=== PATIENT | male | born 2000 | race Caucasian/White ===

== ENCOUNTER 2022-11-12 21:07 | Observation (INO) ==
[2022-11-12 21:57] LABS: Basophils # (auto) 0.08 K/uL (0-0.2); Basophils % (auto) 0.9 %; Eosinophils # (auto) 1.28 K/uL (0-0.50); Eosinophils % (auto) 14.5 %; Hemoglobin 15.3 g/dl (14.0-18.0); Immature Granulocytes # (auto) 0.02 K/uL (0.01-0.20); Immature Granulocytes % (auto) 0.2 %; Lymphocytes # (auto) 3.32 K/uL (1.2-3.4); Lymphocytes % (auto) 37.6 %; Mean Corpuscular Hemoglobin 30.4 pg (25.0-34.0); Mean Corpuscular Hgb Conc 35.6 g/dL (32.0-36.0); Mean Corpuscular Volume 85.3 fL (80.0-100.0); Mean Platelet Volume 10.7 fL (9.4-12.4); Monocytes # (auto) 0.63 K/uL (0.11-0.59); Monocytes % (auto) 7.1 %; Neutrophils # (auto) 3.51 K/uL (1.40-6.50); Neutrophils % (auto) 39.7 %; Platelet Count 193 K/uL (130-400); RDW Coefficient of Variation 11.9 % (11.5-14.5); RDW Standard Deviation 36.6 fL (36.4-46.3); Red Blood Count 5.04 M/uL (4.70-6.10); White Blood Count 8.84 K/ul (4.8-10.8)
[2022-11-12 22:16] LABS: Albumin Globulin Ratio 1.7 (0.9-2); Albumin Level 4.4 gm/dl (3.4-5.0); BUN Creatinine Ratio 16.7 (10-20); Bilirubin,Total 0.6 mg/dl (0.2-1.0); Calcium 9.1 mg/dl (8.5-10.1); Creatinine Clr Calc Pharmacy 186.5 ml/min; Est GFR (African American) 145.1 ml/min; Est GFR (Non-African American) 125.2 ml/min; Globulin 2.6 gm/dl (2.5-4.0)
[2022-11-12] MEDS ORDERED: OPTIRAY 350 100ml IV ONE (22:27)
[2022-11-12] MEDS ORDERED: SODIUM CHLORIDE 0.9% 1000ML 1,000 ML IV SCH (23:30)
[2022-11-12] MEDS ORDERED: MoRPHine SULFATE 4 MG/ML 1 ML CARP\\VIAL IV PRN (23:30)
[2022-11-12] MEDS ORDERED: cefOXitin 2,000 MG/60 ML BAG IV STA (23:30)
[2022-11-12] MEDS ORDERED: ONDANSETRON INJ 2 MG/ML 2 ML VIAL IV STA (23:30)
--- NOTE | 2022-11-12 23:45 | Emergency Department Note ---
History of Present Illness General Chief complaint: Abdominal Pain Stated complaint: ABDOMINAL PAIN FOR 6 DAYS, Time Seen by Provider: 11/12/22 22:54 History of Present Illness Maximum Pain Intensity: 8 This is a 22-year-old male presenting to the emergency department for evaluation of abdominal pain for the past 5 or 6 days. Patient states his symptoms are slightly to the right side of center. He initially thought he may have been constipated as his symptoms seem to gotten worse after eating this week. The patient did not change his diet or have any recent travel history. He is usually heathy with no previous surgery. The patient does not have significant nausea or vomiting. He has not had much to eat today, but did eat something around 7:30 PM. No fevers. He rates his discomfort an 8/10, dull, and increasing in severity. Home Medications Medication Instructions Recorded Confirmed Type oxycodone-acetaminophen 5 mg-325 1 tab PO Q6H PRN pain #10 tabs 11/13/22 Rx mg tablet (Percocet) Allergies Allergy/AdvReac Type Severity Reaction Status Date / Time No Known Allergies Allergy Verified 11/12/22 23:42 Past Med/Surg History Medical History No pertinent past medical history Surgical History No pertinent past surgical history Social History Smoking Status: Never smoker Hx Alcohol Use: Yes Alcohol type: beer and wine Hx Substance Use: No Preferred Language: Tajik Communication Ability: Effective Master [place] Required: No Beliefs That Will Affect Care: None Current Living Situation: Alone Other Information That Helps Us Care for You: No Feels Safe at Home: Yes Safety Concerns: Feels Safe At This Time Review of Systems A total of 10 systems reviewed and were otherwise negative Physical Exam Vital Signs Vital Signs - 24 hr 11/12/22 21:28 11/12/22 23:45 11/13/22 01:08 Temperature 36.7 C Temperature Source Temporal Artery Scan Pulse Rate 82 Pulse Rate [Finger] 72 Pulse Rate from SpO2 Sensor 70 Pulse Rhythm [Finger] Pulse Strength [Finger] Respiratory Rate 18 16 20 Respiratory Effort / Characteristics Non-Labored Spontaneous Accessory Muscle Use Respiratory Depth Normal Respiratory Pattern Blood Pressure 140/91 Blood Pressure [Right Arm] 108/59 L Blood Pressure Mean 107 Blood Pressure Mean [Right Arm] 75 Blood Pressure Position [Right Arm] Pulse Oximetry 98 99 99 Oxygen Delivery Method Room Air Room Air Sepsis Recent Fever Within 48 Hours No Sepsis New/Unexplained Change in Mental Status No Sepsis Action Taken by Nursing No Action Required 11/13/22 01:10 11/13/22 01:30 11/13/22 02:00 Temperature Temperature Source Pulse Rate Pulse Rate [Finger] Pulse Rate from SpO2 Sensor 69 81 79 Pulse Rhythm [Finger] Pulse Strength [Finger] Respiratory Rate 22 20 14 Respiratory Effort / Characteristics Respiratory Depth Respiratory Pattern Blood Pressure 94/71 L 113/72 123/72 Blood Pressure [Right Arm] Blood Pressure Mean 78 85 89 Blood Pressure Mean [Right Arm] Blood Pressure Position [Right Arm] Pulse Oximetry 99 98 97 Oxygen Delivery Method Sepsis Recent Fever Within 48 Hours Sepsis New/Unexplained Change in Mental Status Sepsis Action Taken by Nursing 11/13/22 01:00 11/13/22 03:00 11/13/22 02:33 Temperature Temperature Source Pulse Rate Pulse Rate [Finger] Pulse Rate from SpO2 Sensor 82 Pulse Rhythm [Finger] Pulse Strength [Finger] Respiratory Rate Respiratory Effort / Characteristics Non-Labored Non-Labored Respiratory Depth Normal Respiratory Pattern Regular Regular Blood Pressure Blood Pressure [Right Arm] Blood Pressure Mean Blood Pressure Mean [Right Arm] Blood Pressure Position [Right Arm] Pulse Oximetry 97 Oxygen Delivery Method Room Air Sepsis Recent Fever Within 48 Hours Sepsis New/Unexplained Change in Mental Status Sepsis Action Taken by Nursing 11/13/22 03:00 11/13/22 03:30 11/13/22 04:00 Temperature Temperature Source Pulse Rate 59 L 56 L 53 L Pulse Rate [Finger] Pulse Rate from SpO2 Sensor 59 L 56 L 53 L Pulse Rhythm [Finger] Pulse Strength [Finger] Respiratory Rate 18 13 12 Respiratory Effort / Characteristics Respiratory Depth Respiratory Pattern Blood Pressure 117/70 115/67 110/63 Blood Pressure [Right Arm] Blood Pressure Mean 85 83 78 Blood Pressure Mean [Right Arm] Blood Pressure Position [Right Arm] Pulse Oximetry 97 96 96 Oxygen Delivery Method Sepsis Recent Fever Within 48 Hours Sepsis New/Unexplained Change in Mental Status Sepsis Action Taken by Nursing 11/13/22 04:30 11/13/22 04:30 11/13/22 05:00 Temperature Temperature Source Pulse Rate 82 56 L Pulse Rate [Finger] Pulse Rate from SpO2 Sensor 55 L Pulse Rhythm [Finger] Pulse Strength [Finger] Respiratory Rate 17 15 Respiratory Effort / Characteristics Respiratory Depth Respiratory Pattern Blood Pressure 107/62 103/58 L Blood Pressure [Right Arm] Blood Pressure Mean 77 73 Blood Pressure Mean [Right Arm] Blood Pressure Position [Right Arm] Pulse Oximetry 96 Oxygen Delivery Method Sepsis Recent Fever Within 48 Hours Sepsis New/Unexplained Change in Mental Status Sepsis Action Taken by Nursing 11/13/22 05:31 Temperature 36.5 C Temperature Source Oral Pulse Rate Pulse Rate [Finger] 69 Pulse Rate from SpO2 Sensor Pulse Rhythm [Finger] Regular Pulse Strength [Finger] Normal Respiratory Rate 18 Respiratory Effort / Characteristics Non-Labored Respiratory Depth Normal Respiratory Pattern Regular Blood Pressure Blood Pressure [Right Arm] 114/71 Blood Pressure Mean Blood Pressure Mean [Right Arm] 85 Blood Pressure Position [Right Arm] Sitting Pulse Oximetry 100 Oxygen Delivery Method Room Air Sepsis Recent Fever Within 48 Hours Sepsis New/Unexplained Change in Mental Status Sepsis Action Taken by Nursing VITALS: Vitals are noted on the nurse's note and reviewed by myself. Vital signs stable. GENERAL: Well-developed, well-nourished, white male, who is in no acute distress and resting comfortably. Patient is cooperative with the examination. HEAD: Normocephalic atraumatic. NECK: Supple without nuchal rigidity. No lymphadenopathy. No thyromegaly. Cervical spine is nontender. HEART: Regular rate and rhythm without murmurs gallops or rubs. LUNGS: Clear to auscultation bilaterally without wheezes, rales or rhonchi. No retractions or accessory muscle use. ABDOMEN: Positive normal bowel sounds x 4. Soft with mild tenderness to the right side of the umbilicus. No rebound or guarding. MUSCULOSKELETAL: No muscle atrophy, erythema, or edema noted. Full range of motion in all extremities. NEURO: Patient was alert and oriented to person place and time. CN II through XII grossly intact. Course Administered Medications Lactated Ringer's (Lr) 1,000 mls @ 50 mls/hr IV .Q20H JANET Stop: 12/13/22 08:12 Last Infusion: 11/13/22 16:29 Dose: 50 mls/hr Documented By: Admin: 11/13/22 09:25 Dose: 80 mls/hr Documented By: VERENICE Ibuprofen (Ibuprofen 600 Mg Tab) 600 mg PO Q6H PRN PRN Reason: Mild Pain Stop: 12/13/22 15:46 Last Admin: 11/13/22 21:09 Dose: 600 mg Documented By: SKYLAR Oxycodone/Acetaminophen (Oxycodone/Acetaminophen 5mg/325mg Tab) 1 tab PO Q4H PRN PRN Reason: Pain Stop: 11/27/22 08:12 Last Admin: 11/13/22 15:47 Dose: 1 tab Documented By: Admin: 11/13/22 09:26 Dose: 1 tab Documented By: VERENICE Discontinued Medications Bacitracin (Bacitracin Oint 15 Gm Tube) Confirm Administered Dose 45 appln .ROUTE .STK-MED ONE Stop: 11/13/22 05:38 Last Admin: 11/13/22 06:25 Dose: Not Given Documented By: DEEPAK Bupivacaine HCl (Bupivacaine 0.5 % 5 Mg/1 Ml Mpf 30ml Vial) Confirm Administered Dose 30 ml .ROUTE .STK-MED ONE Stop: 11/13/22 05:38 Last Admin: 11/13/22 06:39 Dose: 14 ml Documented By: RANGEL Sodium Chloride (Nss 1000ml) 1,000 mls @ 999 mls/hr IV .Q1H1M JANET Stop: 11/13/22 00:30 Last Infusion: 11/13/22 01:03 Dose: 0 mls/hr Documented By: Admin: 11/12/22 23:59 Dose: 999 mls/hr Documented By: ZOYA Cefoxitin Sodium (Mefoxin) 2,000 mg in 60 mls @ 100 mls/hr IV NOW STA Stop: 11/13/22 00:05 Last Infusion: 11/13/22 01:03 Dose: 0 mls/hr Documented By: Admin: 11/12/22 23:55 Dose: 100 mls/hr Documented By: ZOYA Cefoxitin Sodium 2,000 mg/ (Dextrose) 60 mls @ 100 mls/hr IV ONCE ONE Stop: 11/13/22 06:58 Last Infusion: 11/13/22 09:31 Dose: 0 mls/hr Documented By: Admin: 11/13/22 06:09 Dose: 100 mls/hr Documented By: GARRET Ioversol (Optiray 350 100ml) 81 ml IV ONCE ONE Stop: 11/12/22 22:28 Last Admin: 11/12/22 22:29 Dose: 81 ml Documented By: SHERIF Lidocaine HCl (Lidocaine 1% Local 20 Ml Vial) Confirm Administered Dose 1 ml .ROUTE .STK-MED ONE Stop: 11/13/22 05:38 Last Admin: 11/13/22 06:39 Dose: 14 ml Documented By: RANGEL Menthol (Cough Drop (Sugar Free) Clay 24 Clay/1 Box) 1 clay BUCCAL NOW STA Stop: 11/13/22 16:08 Last Admin: 11/13/22 16:29 Dose: 1 clay Documented By: VERENICE Morphine Sulfate (Morphine Sulfate 4 Mg/Ml 1 Ml Carp\Vial) 4 mg IV Q30M PRN PRN Reason: Pain Stop: 11/26/22 23:29 Last Admin: 11/12/22 23:54 Dose: 4 mg Documented By: ZYOA Ondansetron HCl (Ondansetron Inj 2 Mg/Ml 2 Ml Vial) 4 mg IV NOW STA Stop: 11/12/22 23:31 Last Admin: 11/12/22 23:55 Dose: 4 mg Documented By: ZOYA Medical Decision Making Differential Diagnosis Differential diagnosis: Etiologies such as biliary colic, cholecystitis, hepatitis, pancreatitis, cardi ac disease, pancreatitis, gastritis, peptic ulcer disease, appendicitis, cystitis, diverticulitis, mesenteric ischemia, inflammatory bowel disease, ileus, bowel obstruction, testicular/adnexal torsion, aortic pathology, shingles, as well as others were considered Laboratory Data 11/12/22 21:42 11/12/22 21:42 Lab Results 11/12/22 11/12/22 11/13/22 Range/Units 21:42 21:42 00:25 WBC 8.84 (4.8-10.8) K/ul RBC 5.04 (4.70-6.10) M/uL Hgb 15.3 (14.0-18.0) g/dl Hct 43.0 (42.0-52.0) % MCV 85.3 (80.0-100.0) fL MCH 30.4 (25.0-34.0) pg MCHC 35.6 (32.0-36.0) g/dL RDW Std Deviation 36.6 (36.4-46.3) fL RDW Coeff of Jeremiah 11.9 (11.5-14.5) % Plt Count 193 (130-400) K/uL MPV 10.7 (9.4-12.4) fL Immature Gran % (Auto) 0.2 % Neut % (Auto) 39.7 % Lymph % (Auto) 37.6 % [place] % (Auto) 7.1 % Eos % (Auto) 14.5 % Baso % (Auto) 0.9 % Neut # (Auto) 3.51 (1.40-6.50) K/uL Lymph # (Auto) 3.32 (1.2-3.4) K/uL [place] # (Auto) 0.63 H (0.11-0.59) K/uL Eos # (Auto) 1.28 H (0-0.50) K/uL Baso # (Auto) 0.08 (0-0.2) K/uL Immature Gran # (Auto) 0.02 (0.01-0.20) K/uL Sodium 141 (136-145) mmol/L Potassium 4.0 (3.5-5.1) mmol/L Chloride 106 (98-107) mmol/L Carbon Dioxide 29 (21-32) mmol/L Anion Gap 6 (3-11) BUN 14 (6-23) mg/dl Creatinine 0.84 (0.6-1.4) mg/dl Est Cr Clr Drug Dosing 186.5 ml/min Est GFR ( Amer) 145.1 ml/min Est GFR (Non-Af Amer) 125.2 ml/min BUN/Creatinine Ratio 16.7 (10-20) Glucose 106 H (70-99(Fasting)) mg/dl Calcium 9.1 (8.5-10.1) mg/dl Total Bilirubin 0.6 (0.2-1.0) mg/dl AST 189 H (13-39) U/L ALT 58 H (7-52) U/L Alkaline Phosphatase 65 (34-104) U/L Total Protein 7.0 (6.0-8.3) gm/dl Albumin 4.4 (3.4-5.0) gm/dl Globulin 2.6 (2.5-4.0) gm/dl Albumin/Globulin Ratio 1.7 (0.9-2) Lipase 11 (11-82) U/L SARS-CoV-2, RNA, NAAT NEGATIVE (NEGATIVE) Imaging Data Radiologist's Impression: Preliminary Findings Only See Final Report For Complete Findings CT ABDOMEN & PELVIS With Contrast: Acute appendicitis without evidence of rupture. Radiologist:Rock Guy M.D. [facility] Narrative Physical exam and history were performed. Nursing notes, EMR, and Medication List were personally reviewed. No social concerns were identified as barriers to patients care. Patient appears to have abdominal pain bringing him to the ER. IV access was established and labs were obtained. CT was performed. Patient was seen during a period of very high ER volume and acuity with extended wait times. Nursing pro tocol order have been performed and some of these are available for my review at the time of patient encounter. He was given IV fluids, IV morphine, and IV Zofran. Patient's blood work is as above and was reviewed. He does not have a significantly elevated white blood cell count, gross anemia, bandemia, or significant electrolyte imbalance. AST is slightly elevated of uncertain etiology, however alcohol use is suspected. CT scan was performed and reviewed by myself and radiology and does appear to show acute appendicitis without perforation or abscess. This would correlate with his symptoms. Case was discussed with the on-call general surgeon, Dr. Arroyo, who will evaluate the patient here in the ER. The patient was given IV Mefoxin here in the ER. Please see Dr. Arroyo's dictation for further patient course, plan, disposition. The chart was completed utilizing [employer] Speech Voice Recognition Software. Grammatical errors, random word insertions, pronoun errors, and incomplete se ntences are an occasional consequence of this system due to software limitations, ambient noise, and hardware issues. Any formal questions or concerns about the content, text, or information contained within the body of this dictation should be directly addressed to the provider for clarification. . Impression & Plan Acute appendicitis Discharge Plan Visit Data Chief Complaint: Abdominal Pain Stated Complaint: ABDOMINAL PAIN FOR 6 DAYS, ED Provider: Mick Mace ED Midlevel Provider: Ezekiel Bhatt Discharge Problem: Acute appendicitis Patient Disposition: Admitted As Inpatient Discharge Instructions Interventions: ED Discharge Assessment Last Done: 11/13/22 05:24
--- NOTE | 2022-11-13 00:45 | History & Physical Bridge Note ---
Date of Service November 13, 2022 History & Physical Bridge Note I have examined the patient, reviewed the History & Physical and in the interval since the performance of the History & Physical I have noted the following changes of clinical significance: no changes noted
--- NOTE | 2022-11-13 00:45 | Surgery Consultation ---
Date of Consultation November 13, 2022 Assessment & Plan (1) Acute appendicitis: pt is a 22 year-old male who presents with 4 days history RLQ pain, IMP: acute appendicitis, plan, I recommend to do laparoscopic appendectomy, possible open, D/W benefits, risks and alternatives of the surgery, the risks - infection, bleeding, abscess, injury other organs, incisional hernia, may still need to do appendectomy if operative room finding negative for appendicitis, pt understood, he agreed with surgery, he signed informed consent, I answered all questions, pre-op antibiotic. COVID-19 History of Present Illness Reason for Consultation: acute appendicitis Requesting Physician: Mick Mace MD History of Present Illness History of Present Illness General Chief complaint: Abdominal Pain Stated complaint: ABDOMINAL PAIN FOR 6 DAYS, Time Seen by Provider: 11/12/22 22:54 History of Present Illness Maximum Pain Intensity: 8 This is a 22-year-old male presenting to the emergency department for evaluation of abdominal pain for the past 5 or 6 days. Patient states his symptoms are sli ghtly to the right side of center. He initially thought he may have been constipated as his symptoms seem to gotten worse after eating this week. The patient did not change his diet or have any recent travel history. He is usually heathy with no previous surgery. The patient does not have significant nausea or vomiting. He has not had much to eat today, but did eat something around 7:30 PM. No fevers. He rates his discomfort an 8/10, dull, and increasing in severity. I ( Kandi Arroyo MD ) got a call for consult acute appendicitis, I reviewed pt's H/P, labs and CT scan with pt, pt is still have RLQ pain, Home Medications Medication Instructions Recorded Confirmed Type No Known Home Medications 11/12/22 11/12/22 History Allergies Allergy/AdvReac Type Severity Reaction Status Date / Time No Known Allergies Allergy Verified 11/12/22 23:42 Past Med/Surg History Medical History No pertinent past medical history Surgical History No pertinent past surgical history Social History Smoking Status: Never smoker Feels Safe at Home: Yes Review of Systems A total of 10 systems reviewed and were otherwise negative Allergies Allergy/AdvReac Type Severity Reaction Status Date / Time No Known Allergies Allergy Verified 11/12/22 23:42 Home Medications Medication Instructions Recorded Confirmed Type No Known Home Medications 11/12/22 11/12/22 History Patient History Medical History No pertinent past medical history Surgical History No pertinent past surgical history Social History Smoking Status: Never smoker Feels Safe at Home: Yes Review of Systems Constitutional: as per Subjective / HPI Eyes: as per Subjective / HPI Respiratory: as per Subjective / HPI Cardiovascular: as per Subjective / HPI Gastrointestinal: as per Subjective / HPI Genitourinary: + as per Subjective / HPI Musculoskeletal: as per Subjective / HPI Neurologic: as per Subjective / HPI Psychiatric: as per Subjective / HPI Hematologic / Lymphatic: as per Subjective / HPI Physical Exam Constitutional: WD/WN, vitals as above Eyes: PERRL, conjunctivae normal, anicteric sclerae Neck: trachea midline, no thyromegaly Respiratory: normal respiratory effort, lungs clear to auscultation Cardiovascular: RRR, no murmur, no edema Gastrointestinal (Abdomen): soft, tenderness at RLQ, with rebound pain, no distend, BS +, Musculoskeletal: no cyanosis or clubbing, extremities motor strength 5/5 Neurologic: patellar DTR's 2+ bilat, sensation intact Psychiatric: A+Ox3, euthymic affect Results & Data ([facility]) Vital Signs (Past 12 Hours) Vital Signs Temp Pulse Pulse Resp BP BP Pulse Ox 11/12/22 23:45 72 16 108/59 L 99 11/12/22 21:28 36.7 C 82 18 140/91 98 O2 Del Method 11/12/22 23:45 Room Air 11/12/22 21:28 Room Air Laboratory Results Abnormal lab results 11/12/22 11/12/22 Range/Units 21:42 21:42 Gray # (Auto) 0.63 H (0.11-0.59) K/uL Eos # (Auto) 1.28 H (0-0.50) K/uL Glucose 106 H (70-99(Fasting)) mg/dl AST 189 H (13-39) U/L ALT 58 H (7-52) U/L Diagnostic Findings CT scan- acute appendicitis
--- NOTE | 2022-11-13 01:04 | Anesthesiology Consultation ---
Date of Service November 13, 2022 Assessment & Plan (1) Encounter for pre-operative examination: Chart Review Chart Review: Acceptable Risk for Surgery History Height/Weight Height: 6 ft 3 in Weight: 110.2 kg Allergies Allergy/AdvReac Type Severity Reaction Status Date / Time No Known Allergies Allergy Verified 11/12/22 23:42 Medications Home Medications Medication Instructions Recorded Confirmed Last Taken No Known Home Medications 11/12/22 11/12/22 Unknown Active Medications Generic Name Dose Route Start Last Admin Trade Name Freq PRN Reason Stop Dose Admin Morphine Sulfate 4 mg 11/12/22 23:30 11/12/22 23:54 Morphine Sulfate 4 Mg/Ml 1 Ml Carp\Vial IV 11/26/22 23:29 4 mg Q30M PRN Administration Pain Past Medical History Medical History No pertinent past medical history Past Surgical History Surgical History No pertinent past surgical history Social History Smoking Status: Never smoker Physical Exam Vital Signs Last Vital Signs Temp 36.7 C 11/12/22 21:28 Pulse 72 11/12/22 23:45 Resp 16 11/12/22 23:45 BP 108/59 L 11/12/22 23:45 Pulse Ox 99 11/12/22 23:45 O2 Del Method 11/12/22 23:45 Testing Laboratory Results 11/12/22 21:42 11/12/22 21:42
[2022-11-13] MEDS ORDERED: MIDAZOLAM HCL 1 MG/ML 2ML VIAL ONE (01:09)
[2022-11-13] MEDS ORDERED: fentaNYL citrate 100 MCG/2 ML VIAL ONE ×2 (01:09→06:51)
[2022-11-13 02:38] LABS: Appearance Urine Clear (Clear); Bilirubin Urine Negative (Negative); Blood Urine Negative (Negative); Color Urine Yellow; Glucose Urine UA Negative (Negative); Ketones Urine Negative (Negative); Leukocyte Esterase Urine Negative (Negative); Nitrite Urine Negative (Negative); Protein Urine Negative (Negative); Specific Gravity Urine > 1.045 (1.000-1.030); Urobilinogen Urine Negative (Negative); pH Urine 6.5 (4.5-7.5)
[2022-11-13] MEDS ORDERED: LIDOCAINE 1% LOCAL 20 ML VIAL ONE (05:37)
[2022-11-13] MEDS ORDERED: BACITRACIN OINT 15 GM TUBE ONE (05:37)
[2022-11-13] MEDS ORDERED: BUPIVACAINE 0.5 % 5 MG/1 ML MPF 30ML VIAL ONE (05:37)
[2022-11-13] MEDS ORDERED: ONDANSETRON INJ 2 MG/ML 2 ML VIAL IV PRN ×2 (05:43→06:50)
[2022-11-13] MEDS ORDERED: fentaNYL citrate 100 MCG/2 ML VIAL IV PRN (05:43)
[2022-11-13] MEDS ORDERED: PROMETHAZINE HCL 12.5 MG in SODIUM CHLORIDE 0.9% 50 ML IV PRN (05:43)
[2022-11-13] MEDS ORDERED: ATROPINE SULFATE 0.1 MG/ML 10ML SYR IV PRN (05:43)
[2022-11-13] MEDS ORDERED: KETOROLAC 30 MG/ML VIAL IV PRN (05:43)
[2022-11-13] MEDS ORDERED: GLYCOPYRROLATE 0.2 MG/ML VIAL ONE (06:14)
[2022-11-13] MEDS ORDERED: LIDOCAINE 2% MPF LOCAL 5 ML VIAL INFIL ONE (06:14)
[2022-11-13] MEDS ORDERED: ROCURONIUM BROMIDE 10 MG/ML 5 ML VIAL IV ONE (06:14)
[2022-11-13] MEDS ORDERED: PROPOFOL IV EMULSION 10 MG/ML 20 ML VIAL IV ONE (06:14)
[2022-11-13] MEDS ORDERED: NEOSTIGMINE METHYLSULFATE 1 MG/ML 10ML VIAL ONE (06:14)
[2022-11-13] MEDS ORDERED: cefOXitin 2,000 MG in DEXTROSE 5% 50 ML IV ONE (06:23)
[2022-11-13] MEDS ORDERED: DEXAMETHASONE SOD INJ 4 MG/ML VIAL ONE (06:31)
[2022-11-13] MEDS ORDERED: ONDANSETRON INJ 2 MG/ML 2 ML VIAL ONE (06:31)
--- NOTE | 2022-11-13 07:41 | CT Scan Report ---
ABDOMEN AND PELVIS CT WITH IV CONTRAST CT DOSE: 718.71 mGy.cm HISTORY: Acute generalized abdominal pain abd pain TECHNIQUE: Multiaxial CT images of the abdomen and pelvis were performed following the IV administrat ion of 81 cc of Optiray, A dose lowering technique was utilized adhering to the principles of ALARA. COMPARISON STUDY: None. FINDINGS: The lung bases are clear. The liver, spleen, gallbladder, pancreas, kidneys, and adrenal gl ands are within normal limits. No bowel wall thickening or obstruction. Mild colonic fecal retention. The appendiceal tip is dilated measuring 10 mm and is fluid-filled with wall thickening and mucosal hyperemia. Trace periappendiceal inflammation. No abscess. The pelvic organs are unremarkable. No charles picious lytic or blastic osseous lesions. IMPRESSION: Mild acute tip appendicitis. No abscess or pneumoperitoneum. ACT 112: Negative or not required by law. The above report was generated using voice recognition software. It may contain grammatical, syntax o r spelling errors. Electronically signed by: Margarito Doan M.D. 11/13/2022 7:40 AM
--- NOTE | 2022-11-13 07:50 | Operative Report (OR) ---
DATE OF PROCEDURE: 11/13/2022. PREOPERATIVE DIAGNOSIS: Acute appendicitis. POSTOPERATIVE DIAGNOSIS: Acute appendicitis. OPERATION: Laparoscopic appendectomy. SURGEON: Kandi Arroyo MD. ANESTHESIA: General. ESTIMATED BLOOD LOSS: About 10 mL FINDINGS: Acute appendicitis. COMPLICATIONS: None. INDICATIONS FOR THE PROCEDURE: This is a 22-year-old gentleman who presented to ED with a 4-day hist ory of right lower quadrant pain and the patient had a CT scan diagnosis of acute appendicitis. I re commended to do laparoscopic appendectomy, possible open. I did talk to the patient about the benefi t, risk, alternate procedure. I indicated the risks may include, but not limited to, such as bleedin g, infection, injury to other organs, bowel obstruction, incisional hernia. The patient understands. The patient signed informed consent and I answered all questions. DETAILS OF PROCEDURE: After we identified the patient and verified the procedure, we brought the pat ient to the OR, put the patient in the supine position on the OR table. The patient received SCD on bilateral legs to prevent DVT. Also, patient received 2 grams cefoxitin IV for prophylactic antibiot ic. The patient received general anesthesia without difficulty. The abdomen was prepped and draped in routine sterile fashion. After timeout, I injected the local anesthesia by using 1% lidocaine mix ed with 0.5% Marcaine just above the umbilicus. Then, I made a small incision just above umbilicus, opened fascia, opened peritoneum. Under direct vision, put a Denisa trocar in, connected to CO2 to c reate pneumoperitoneum, flow rate at 6 liters per minute, pressure not more than 14 mmHg. Once we got a nice pneumoperitoneum, we put a camera in, looked around the abdomen, showed normal fin ding on the small bowel and large bowel and showed acute appendicitis. Appendix is enlarged with inf lammation. Once we confirmed the diagnosis of acute appendicitis, we put another two 5 mm trocars on the left lower quadrant area, then we used the grasper to hold the appendix. We used the Harmonic t o take down the appendiceal, rechecked, no active bleeding. Then, I used a 45 mm Endo-PHILLIP stapler fo r transection on the base of appendix, rechecked the staple line, intact and no leak, no active bleed ing. Then, we removed the appendix through the catch bag. Then, we reinserted the Denisa trocar in, connected to CO2 to create pneumoperitoneum, again looked a round the abdomen, no active bleeding, no leak from staple line. Then, we removed all trocars under direct vision. No active bleeding from the trocar site. Pneumoperitoneum was released, then I close d the umbilical incision fascial layer by using 0 Vicryl [id number] x2, closed subcutaneous laye r by using 2-0 Vicryl interruptedly, closed skin by using 4-0 Vicryl continuous running, closed anoth er two 5 mm trocar site of skin only by using 4-0 Vicryl. Then, we put the dressing on. The patient tolerated the procedure well. All instrument, needle and sponge counts were correct x2 at the end o f the case. The patient was transferred to recovery room in stable condition. The specimen was sent to pathology. After the procedure, I did talk to the patient about the OR finding and the procedure we did, the patient understands. Job ID: [id number]
[2022-11-13] MEDS ORDERED: HYDROmorphone INJ 0.5 MG/0.5 ML SYR IV PRN (08:13)
--- NOTE | 2022-11-13 09:14 | Anesthesiology Progress Note ---
Date of Service November 13, 2022 Anesthesia Post Procedure Vital Signs Vital Signs: Temp Pulse Pulse Pulse Resp BP BP 11/13/22 09:10 36.5 C 82 14 143/70 H 11/13/22 08:40 36.4 C L 57 L 14 149/79 H 11/13/22 08:10 36.4 C L 74 16 138/76 11/13/22 07:11 36.6 C 54 L 12 140/81 11/13/22 07:05 36.8 C 53 L 14 137/83 11/13/22 07:20 36.8 C 56 L 14 129/73 11/13/22 06:55 36.8 C 52 L 12 141/84 H 11/13/22 05:31 36.5 C 69 18 114/71 11/13/22 05:00 56 L 15 103/58 L 11/13/22 04:30 82 17 11/13/22 04:30 107/62 11/13/22 04:00 53 L 12 110/63 11/13/22 03:30 56 L 13 115/67 11/13/22 03:00 59 L 18 117/70 11/13/22 02:33 11/13/22 03:00 11/13/22 02:00 14 123/72 11/13/22 01:30 20 113/72 11/13/22 01:10 22 94/71 L 11/13/22 01:08 20 11/12/22 23:45 72 16 108/59 L 11/12/22 21:28 36.7 C 82 18 140/91 Pulse Ox O2 Del Method 11/13/22 09:10 98 Room Air 11/13/22 08:40 97 Room Air 11/13/22 08:10 99 Room Air 11/13/22 07:11 98 Room Air 11/13/22 07:05 94 Room Air 11/13/22 07:20 99 Room Air 11/13/22 06:55 98 Room Air 11/13/22 05:31 100 Room Air 11/13/22 05:00 96 11/13/22 04:30 11/13/22 04:30 11/13/22 04:00 96 11/13/22 03:30 96 11/13/22 03:00 97 11/13/22 02:33 97 11/13/22 03:00 Room Air 11/13/22 02:00 97 11/13/22 01:30 98 11/13/22 01:10 99 11/13/22 01:08 99 11/12/22 23:45 99 Room Air 11/12/22 21:28 98 Room Air Pain Intensity Abdomen: Pain Intensity: 6 Transfer of Care Handoff Completed per policy Notes Mental Status: alert / awake / arousable and participated in evaluation Patient Amnestic to Procedure: Yes Nausea / Vomiting: adequately controlled Pain: adequately controlled Airway Patency, RR, SpO2: stable & adequate BP & HR: stable & adequate Hydration State: stable & adequate Anesthetic Complications: no major complications apparent and Pt Satisfied with anesthetic care
[2022-11-13] MEDS: LACTATED RINGER'S 1,000 ML IV SCH (09:25)
[2022-11-13] MEDS: oxyCODONE/ACETAMINOPHEN 5mg/325mg TAB PO PRN ×2 (09:26→15:47)
[2022-11-13] MEDS ORDERED: ACETAMINOPHEN 325 MG TAB PO PRN (10:21)
--- NOTE | 2022-11-13 11:38 | Surgery Progress Note ---
Date of Service November 13, 2022 Assessment & Plan (1) Acute appendicitis: Plan: POD # 0 s/p laparoscopic appendectomy -afebrile, vss - postop pain controlled - no n,v Plan: advance diet as tolerated encouraged oob and incentive spirometry needs to ambulate and ensure he can urinate on his own prior to discharge Admission and Anticipated Discharge Date Admission Date: November 13, 2022 Subjective postop pain at incision sites controlled with Percocet no n,v tolerated clear liquids has not been out of bed since surgery has not urinated since surgery no chest pain or shortness of breath Physical Exam Constitutional: WD/WN, vitals as above cooperative and comfortable; no acute distress and not ill appearing Respiratory: normal respiratory effort; no respiratory distress Gastrointestinal (Abdomen): Inspection/Auscultation: abdomen normal to inspection and + abdominal surgical incision (covered with clean/dry dressings, mild spotting in lower mid dressing); abdomen not distended Percussion/Palpation: + abdomen tender (at incision sites, appropriate postop) and abdomen soft; no guarding and abdomen not rigid Skin: no rashes, warm and dry Psychiatric: A+Ox3, euthymic affect Results & Data ([facility]) Vital Signs (Past 12 Hours) Vital Signs Temp Pulse Pulse Pulse Resp BP BP 11/13/22 11:29 36.6 C 73 16 127/74 11/13/22 10:10 36.4 C L 61 16 119/74 11/13/22 09:10 36.5 C 82 14 143/70 H 11/13/22 08:40 36.4 C L 57 L 14 149/79 H 11/13/22 08:10 36.4 C L 74 16 138/76 11/13/22 07:11 36.6 C 54 L 12 140/81 11/13/22 07:05 36.8 C 53 L 14 137/83 11/13/22 07:20 36.8 C 56 L 14 129/73 11/13/22 06:55 36.8 C 52 L 12 141/84 H 11/13/22 05:31 36.5 C 69 18 114/71 11/13/22 05:00 56 L 15 103/58 L 11/13/22 04:30 82 17 11/13/22 04:30 107/62 11/13/22 04:00 53 L 12 110/63 11/13/22 03:30 56 L 13 115/67 11/13/22 03:00 59 L 18 117/70 11/13/22 02:33 11/13/22 03:00 11/13/22 02:00 14 123/72 11/13/22 01:30 20 113/72 11/13/22 01:10 22 94/71 L 11/13/22 01:08 20 11/12/22 23:45 72 16 108/59 L Pulse Ox O2 Del Method 11/13/22 11:29 98 Room Air 11/13/22 10:10 98 Room Air 11/13/22 09:10 98 Room Air 11/13/22 08:40 97 Room Air 11/13/22 08:10 99 Room Air 11/13/22 07:11 98 Room Air 11/13/22 07:05 94 Room Air 11/13/22 07:20 99 Room Air 11/13/22 06:55 98 Room Air 11/13/22 05:31 100 Room Air 11/13/22 05:00 96 11/13/22 04:30 11/13/22 04:30 11/13/22 04:00 96 11/13/22 03:30 96 11/13/22 03:00 97 11/13/22 02:33 97 11/13/22 03:00 Room Air 11/13/22 02:00 97 11/13/22 01:30 98 11/13/22 01:10 99 11/13/22 01:08 99 11/12/22 23:45 99 Room Air
[2022-11-13] MEDS ORDERED: IBUPROFEN 600 MG TAB PO PRN (15:47)
[2022-11-13] MEDS ORDERED: COUGH DROP (SUGAR FREE) LOZ 24 LOZ/1 BOX BUCCAL STA (16:07)
[2022-11-14] MEDS: LACTATED RINGER'S 1,000 ML IV SCH (00:38)
--- NOTE | 2022-11-14 10:46 | Surgery Progress Note ---
Date of Service November 14, 2022 Assessment & Plan (1) Acute appendicitis: Plan: POD # 0 s/p laparoscopic appendectomy -afebrile, vss - postop pain controlled - no n,v Plan: advance diet as tolerated encouraged oob and incentive spirometry needs to ambulate and ensure he can urinate on his own prior to discharge 11/14/2022 10:43AM Dr. Arroyo F/U S/P lap appy, POD 1 pt is doing fine, no significant abdominal pain, tolerated diet, no nausea, no vomiting, no fever, discharge home today, post-op care instruction was given, F/U 2 weeks, Admission and Anticipated Discharge Date Admission Date: November 13, 2022 Subjective postop pain at incision sites controlled with Percocet no n,v tolerated clear liquids has not been out of bed since surgery has not urinated since surgery no chest pain or shortness of breath 11/14/2022 10:43AM Dr. Arroyo F/U S/P lap appy, POD 1 pt is doing fine, no significant abdominal pain, tolerated diet, no nausea, no vomiting, no fever, Review of Systems Constitutional: as per Subjective / HPI Eyes: as per Subjective / HPI Respiratory: as per Subjective / HPI Cardiovascular: as per Subjective / HPI Gastrointestinal: as per Subjective / HPI Genitourinary: + as per Subjective / HPI Musculoskeletal: as per Subjective / HPI Neurologic: as per Subjective / HPI Psychiatric: as per Subjective / HPI Hematologic / Lymphatic: as per Subjective / HPI Physical Exam Constitutional: WD/WN, vitals as above Eyes: PERRL, conjunctivae normal, anicteric sclerae Neck: trachea midline, no thyromegaly Respiratory: normal respiratory effort, lungs clear to auscultation Cardiovascular: RRR, no murmur, no edema Gastrointestinal (Abdomen): soft, mild tenderness at incision site, no redness, no distend, BS +, Musculoskeletal: no cyanosis or clubbing, extremities motor strength 5/5 Neurologic: patellar DTR's 2+ bilat, sensation intact Psychiatric: A+Ox3, euthymic affect Results & Data ([facility]) Vital Signs (Past 12 Hours) Vital Signs Temp Pulse Resp BP Pulse Ox O2 Del Method 11/14/22 07:23 36.3 C L 74 16 128/69 97 Room Air 11/14/22 03:58 36.5 C 60 14 117/57 L 97 Room Air 11/13/22 23:08 36.7 C 80 14 130/71 94 Room Air
--- NOTE | 2022-11-14 11:34 | Discharge Summary (DS) ---
DATE OF ADMISSION: 11/13/2022. DATE OF DISCHARGE: 11/14/2022. ADMISSION DIAGNOSIS: Acute appendicitis. DISCHARGE DIAGNOSIS: Acute appendicitis. OPERATION: Laparoscopic appendectomy. SURGEON: Kandi Arroyo MD. DETAILS OF DISCHARGE SUMMARY: This is a 22-year-old gentleman who presented to ED with acute abdomin al pain. The patient had a CT scan diagnosis of acute appendicitis. I took the patient to the OR, w e did laparoscopic appendectomy. The patient tolerated the procedure well and after the procedure, t he patient was transferred to the recovery room and later on transferred to regular floor. The patie nt is doing fine. He tolerated a diet. No significant abdominal pain. No nausea, no vomiting, no f ever. The patient wanted to go home. PHYSICAL EXAMINATION: VITAL SIGNS: Temperature is 36.3, respiratory rate 16, heart rate 74, blood pressure is 128/69, O2 s aturation 97% on room air. GENERAL: The patient is alert, awake, oriented x3. HEENT: Within normal limitation. NEUROLOGIC: Intact. NECK: No JVD. CHEST: Bilateral lung sounds clear. HEART: Normal S1 and S2. No murmur. ABDOMEN: Soft. Mild tenderness on the incision site. All incisions intact. No redness. Bowel lisa nds positive. No distention. EXTREMITIES: No edema. The patient will go home today. We gave the patient postop care instruction. Patient's father under stand. I will follow up the patient in 2 weeks. Job ID: [id number]
== END 2022-11-14 11:40 | disposition home or self-care (01) ==
LOC: ED 21:07 → 3E 11-13 05:24 → OR 11-13 05:24